=== PATIENT | female | born 1970 | race Two or more races ===

== ENCOUNTER → 2020-06-08 | Outpatient (CLI) | payer OTHER ==
[2020-06-08 15:56] LABS: INR 0.99 (0.9-1.15)
== END | disposition home or self-care (01) ==
LOC: LAB 15:03
PROVIDERS: ATTEND Nurse Practitioner
DX: I74.9 Embolism and thrombosis of unspecified artery (principal)
CPT/HCPCS: 36415; 85610; 85730